=== PATIENT | female | born 1980 | race Caucasian/White ===

== ENCOUNTER 2022-02-10 22:50 | Emergency (ER) | payer SELFPAY ==
[2022-02-10 23:29] LABS: BASOPHIL 0.6 % (0-2); EOSINOPHIL 4.7 % (0-5); HCT 34.2 % (37.0-47.0); HGB 10.7 g/dl (12.5-16.0); LYMPHOCYTE 27.4 % (15-48); MCH 23.7 pg (25.0-31.0); MCHC 31.3 g/dL (32.0-36.0); MCV 75.8 fL (78.0-100.0); MONOCYTE 6.8 % (0-12); MPV 8.9 fL (6.0-9.5); NEUTROPHIL 60.1 % (41-80); NRBC 0; PLT 273 K/uL (150-400); RBC 4.51 M/uL (4.20-5.40); RDW 15.9 % (11.5-14.0); WBC 8.3 K/uL (4.0-10.5)
[2022-02-10 23:30] LABS: BILIRUBIN NEGATIVE (NEGATIVE); BLOOD 3+ Ery/uL (NEGATIVE); CLARITY CLEAR (CLEAR); COLOR YELLOW (YELLOW); GLUCOSE (U) NORMAL (NORMAL); LEUKOCYTES 1+ Leu/uL (NEGATIVE); NITRITE NEGATIVE (NEGATIVE); PROTEIN NEGATIVE (NEGATIVE); SPECIFIC GRAVITY <=1.005 (1.001-1.030); UROBILINOGEN 0.2 mg/dL (0.2-1.0)
[2022-02-10 23:44] LABS: BACTERIA TRACE
[2022-02-10 23:46] LABS: ALBUMIN 3.9 g/dL (3.4-5.0); BILIRUBIN - TOTAL 0.3 mg/dL (0.2-1.0); BUN/CREAT RATIO (CALC) 15.2 RATIO; CREATININE 0.92 mg/dL (0.51-0.95); GLOBULIN (CALCULATION) 4.2 g/dL; POTASSIUM 3.5 mmol/L (3.5-5.1); TOTAL PROTEIN 8.1 g/dL (6.4-8.2)
[2022-02-11 00:55] LABS: BILIRUBIN NEGATIVE (NEGATIVE); BLOOD 3+ Ery/uL (NEGATIVE); CLARITY CLEAR (CLEAR); COLOR YELLOW (YELLOW); GLUCOSE (U) NORMAL (NORMAL); LEUKOCYTES 1+ Leu/uL (NEGATIVE); NITRITE NEGATIVE (NEGATIVE); PROTEIN NEGATIVE (NEGATIVE); SPECIFIC GRAVITY <=1.005 (1.001-1.030); UROBILINOGEN 0.2 mg/dL (0.2-1.0)
[2022-02-11 01:17] LABS: BACTERIA TRACE
[2022-02-11 01:19] LABS: BROAD CASTS TRACE
[2022-02-11] MEDS ORDERED: ONDANSETRON ODT4 MG PO ×2 (03:03→03:10)
[2022-02-11] MEDS ORDERED: DIFLUCAN 100MG100 MG PO ×2 (03:03→03:10)
[2022-02-11] MEDS ORDERED: NORCO 5-325 TA1 EACH PO ×2 (03:03→03:10)
[2022-02-11] MEDS ORDERED: KEFLEX250 MG PO ×2 (03:03→03:10)
== END 2022-02-11 03:30 | disposition home or self-care (01) ==
LOC: FER 22:50
PROVIDERS: Emergency Medicine
DX: N39.0 Urinary tract infection, site not specified (principal); Z98.890 Other specified postprocedural states; Z28.310 Unvaccinated for COVID-19
CPT/HCPCS: 36415; 80053; 81001; 82150; 83690; 85025; J1885; J2405; J7030; Q0169; Q9967